=== PATIENT | male | born 2000 | race Caucasian/White ===

== ENCOUNTER 2021-02-11 19:30 | Emergency (ER) | payer MEDICAID, OTHER ==
[~2021-02-11] VITALS: Ht 182.9 cm; Wt 113.6 kg
[2021-02-11] MEDS ORDERED: ondansetron/PF 4mg/2ml inj IV ONE ×2 (20:35→21:15)
[2021-02-11] MEDS ORDERED: fentaNYL/PF 50MCG/1 ML 2ML syringe IV ONE (20:35)
[2021-02-11] MEDS ORDERED: normal saline 1000ML IV soln IVB ONE (20:35)
[2021-02-11] MEDS ORDERED: etomidate 2mg/ml inj. IV ONE (21:15)
[2021-02-11] MEDS ORDERED: ketorolac trometh. 30mg/ml inj. IV ONE (22:00)
[2021-02-11 22:21] VITALS: BP 134/75
== END 2021-02-11 22:23 | disposition home or self-care (01) ==
LOC: ER 19:31
DX: S43.004A Unspecified dislocation of right shoulder joint, initial encounter (principal); X50.9XXA Other and unspecified overexertion or strenuous movements or postures, initial encounter; Y93.89 Activity, other specified; Y92.89 Other specified places as the place of occurrence of the external cause; Y99.8 Other external cause status
CPT/HCPCS: 23650; 73020; 73030; 94799; 96361; 96374; 96375; 96376; 99285; J1885; J2405; J3010; J7030

== ENCOUNTER 2022-05-21 15:29 | Emergency (ER) | payer MEDICAID ==
[~2022-05-21] VITALS: Ht 182.9 cm; Wt 100.7 kg
[2022-05-21 16:11] VITALS: BP 124/77
== END 2022-05-21 18:26 | disposition home or self-care (01) ==
LOC: ER 15:29
DX: S80.12XA Contusion of left lower leg, initial encounter (principal); V49.9XXA Car occupant (driver) (passenger) injured in unspecified traffic accident, initial encounter; Y93.89 Activity, other specified; Y92.89 Other specified places as the place of occurrence of the external cause; Y99.8 Other external cause status
CPT/HCPCS: 73590; 99283